=== PATIENT | male | born 1985 | race Caucasian/White ===

== ENCOUNTER 2019-04-02 11:24 | Emergency (ER) | payer OTHER ==
[~2019-04-02] VITALS: Ht 188 cm; Wt 90.7 kg
[~2019-04-02 11:24] MED LIST: ACETAMINOPHEN325 M1 PO; APAP500 PO; ATIVAN2 MG PO; CLOTRIMAZOLE 1% TP; DESYREL50 MG PO; DIPHENHYDRAMINE25 M3 PO; OXYBUTYNIN 5 MG5 M1 PO; PERIDEX 0.12%473 M1 SSP; RISPERDAL4 M1 PO
[2019-04-02 11:27] VITALS: BP 122/80
== END 2019-04-02 12:15 ==
LOC: ER 11:24
DX: R03.0 Elevated blood-pressure reading, without diagnosis of hypertension (principal); F84.0 Autistic disorder; F90.9 Attention-deficit hyperactivity disorder, unspecified type; Z88.8 Allergy status to other drugs, medicaments and biological substances